=== PATIENT | female | born 1985 | race Caucasian/White ===

== ENCOUNTER 2024-09-03 15:24 | Emergency (ER) | payer MEDICAID, SELFPAY ==
[2024-09-03 15:36] VITALS: BP 142/97; PULSE 100; RESP 20; TEMP 36.7; O2SAT 97; BMI 25.7
--- NOTE | 2024-09-03 15:59 | ED_ITS ---
HPI - Medical Clearance General Chief complaint: Medical Clearance Stated complaint: Med refill Time Seen by Provider: 09/03/24 15:59 Source: patient Mode of arrival: ambulatory Limitations: no limitations History of Present Illness ED Provider: Lora Sanchez PA-C HPI Narrative: Patient is a 39 year old assigned female at with a history of psychiatric diagnoses presenting to the emergency department today requesting a medication refill. Patient states that when she was transferred from [facility] stabilization to [facility] she was transferred with her medications but they did not include her Seroquel. Patient states that she got ahold of her prescriber who stated she would transfer the prescription to the [facility] but would need 3 business days to do so. Patient states that she needs her medication sooner than 3 days from now. Patient denies any dizziness, lightheadedness, abdominal pain, nausea, vomiting, fever, chills, blurry vision, double vision, loss of vision, chest pain, difficulty breathing, shortness of breath, back pain, night sweats, pain with urination, increased urinary frequency, increased urinary urgency, blood in her urine or stool, syncope or a near syncopal episode, recent trauma or falls, bowel incontinence, bladder incontinence, or any other complaints at this time. Related Information Previous Rx's ?Medication ?Instructions ?Recorded quetiapine 200 mg tablet (Seroquel) See Rx Instructions .Route 09/03/24 .COMPLEX 3 days #12 tabs Allergies Allergy/AdvReac Type Severity Reaction Status Date / Time No Known Allergies Allergy Verified 09/03/24 15:40 Review of Systems Constitutional: Constitutional: Reports no additional constitutional complaints, Denies chills, Denies fever(s) and Denies night sweats Eyes: Eyes: Reports no additional eye complaints, Denies blurry vision, Denies change in vision, Denies diplopia, Denies eye discharge, Denies loss of vision and Denies eye pain ENT: Denies dizziness Cardiovascular: Cardiovascular: Reports no additional cardiovascular complaints, Denies chest pain, Denies lightheadedness, Denies Loss of Consciousness and Denies dyspnea Respiratory: Respiratory: Reports no additional respiratory complaints and Denies dyspnea Gastrointestinal: Gastrointestinal: Reports no additional gastrointestinal complaints, Denies abdominal pain, Denies melena, Denies hematochezia, Denies change in bowel habits and Denies change in stool character Genitourinary: Genitourinary: Denies hematuria, Denies urinary frequency, Denies dysuria, Denies urinary incontinence, Denies urinary hesitancy and Denies urinary urgency Musculoskeletal: Musculoskeletal: Reports no additional musculoskeletal complaints, Denies numbness and Denies tingling Neurologic: Denies dizziness, Denies loss of vision, Denies numbness and Denies tingling Psychiatric: Psychiatric: Reports no additional psychiatric complaints Endocrine: Endocrine: Reports no additional endocrine complaints Hematologic/Lymphatic: Hematologic/Lymphatic: Reports no additional hematologic/lymphatic complaints Allergic/Immunologic: Allergic/Immunologic: Reports no additional allergic/immunologic complaints [facility] Past Medical History Attestation statement: The following information was validated with the patient. Source: old records reviewed and nursing notes reviewed Social History Social History Advance Directives: No Advance Directives Information Provided: Yes Physical Exam Vital Signs: Vital Signs: Last Vital Signs Temp 98.2 F 09/03/24 17:02 Pulse 96 09/03/24 17:02 Resp 16 09/03/24 17:02 BP 130/82 09/03/24 17:02 Pulse Ox 97 09/03/24 17:02 O2 Del Method Room Air 09/03/24 17:02 BMI result Body Mass Index 25.7 Const: General: cooperative, no acute distress, alert and awake Nutritional Appearance: well nourished Orientation/consciousness: patient oriented x3 HEENT: Head: Yes normal to inspection and Yes atraumatic Ears: hearing grossly normal bilaterally and external ears normal General nose exam: Normal external nose present, no nasal discharge noted and no epistaxis Face and sinus: Yes normal facial exam, No abrasion and No laceration Mouth: Normal oral and palatal mucosa present, no drooling and no muffled voice Eyes: General: appearance normal, both eyes and all related structures Periorbital: periorbital findings normal Eyelids: Yes eyelids normal Conjunctivae: conjunctivae normal Pupils: Equal, round and reactive pupils present EOM: EOMs intact bilaterally Neck: Neck: Yes normal visual inspection, Yes full ROM and Yes no lympha denopathy Resp: Effort & Inspection: normal respiratory effort and able to speak in complete sentences Neuro: General: patient oriented x3, moves all extremities and CN's II-XI intact bilaterally Cranial nerves: Yes Equal, round and reactive pupils present Cognition (Neuro): normal cognition Extrem: General: Yes normal to inspection, Yes full ROM and Yes capillary refill normal Psych: Appearance: grossly normal Mental Status: mental status grossly normal Affect: normal affect Attitude: cooperative Thought process: Normal thought process present Thought content: Normal thought content pres ent Insight: Good insight present (Psych) Medications Administered Discontinued Medications Generic Name Dose Route Start Last Admin Trade Name [place] PRN Reason Stop Dose Admin Quetiapine Fumarate 200 mg 09/03/24 16:08 09/03/24 16:59 Quetiapine Fumarate 200 Mg Tablet PO 09/03/24 16:09 200 mg ONCE ONE Administration Medical Decision Making Medical Decision Making MDM Narrative: Patient is a 39 year old assigned female at with a history of psychiatric diagnoses presenting to the emergency department today requesting a medication refill. Patient's physical exam was unremarkable. I explained my physical exam findings to the patient. I answered all questions asked by the patient. Patient was given a dose of her seroquel while in the department. I explained to the patient that I would prescribe her 3 days worth of her medications however, my prescription may delay her getting the new prescription filled that is being sent in by her normal prescriber. I explained this may be an issue because of refill times . Patient stated that she understood and wanted the smaller script sent by me put in. I stressed the importance of the patient taking her medication as directed (either prescribed or as the over the counter packaging recommends). I stressed the importance of the patient following up with her primary care provider and her psychiatrist. I stressed the importance of the patient returning to the emergency department immediately if her symptoms were to worsen or if she were to develop any dizziness, shortness of breath, difficulty breathing, chest pain, blurry vision, loss of vision, nausea, vomiting, abdominal pain, fever, chills, back pain, or any other complaints. Patient verbalized agreement and understanding with this treatment plan and discharge. Differential Diagnosis Differential Diagnoses: The differential diagnosis associated with the presentation includes Medication refill Admission/Observation Consideration of admission/observation: Escalation of care including admission/observation considered Patient would have been admitted to the hospital had her clinical presentation warranted hospital admission. Discharge Plan Discharge Clinical Impression: Encounter for medication refill Patient Disposition: Home, Self-Care Instructions: Medicine Refill (ED) Additional Instructions: You have been given a prescription for your Seroquel for 3 days. Filling this prescription may cause issues / delays with filling your next / longer Seroquel prescription. I explained that to you and you have decided you would like to have the short refill now and will address the delay / issue with a longer refill if it occurs. Follow up with your primary care provider and your psychiatrist. Return to the emergency department immediately if you develop any numbness, tingling, dizziness, shortness of breath, difficulty breathing, chest pain, blurry vision, loss of vision, nausea, vomiting, abdominal pain, fever, chills, back pain, or any other complaints. Please see the information below about our Patient Portal. If you are not yet enrolled in the [facility] Patient Portal, you will receive an enrollment email invitation following your visit to any [facility] setting. You may also self-enroll in the Patient Portal by visiting our website: [email or web address] The following information is required to access the Patient Portal: - Your [facility] Medical Record Number - Your personal home email address (must match what is in your electronic medical record, Registration staff can assist with this) - Name - Date of Capabilities of the Patient Portal: - Message some providers - View upcoming appointments - Access your health summary, medical history, and visit history - View current conditions and allergies - View procedure and lab results - View your medications, including guidelines, side effects, and precautions - Complete pre-appointment questionnaires requested by your provider - Ready summary reports of your office visits and procedures To access the Patient Portal Mobile Honey, follow these directions: - Search [employer] in the Honey Store or [employer] Store - Download the Honey - Search for [facility] - Enter your login/password Prescriptions: New quetiapine [Seroquel] 200 mg tablet See Rx Instructions .ROUTE .COMPLEX 3 Days Qty: 12 0RF Rx Instructions: 200 mg (1 tablet) orally in the morning and afternoon 400 mg (2 tablets) at bed time Referrals: [facility] Family Medicine [Provider Group] (Call to establish and follow up with a primary care provider. If you already have a primary care provider, please follow up with them.) [facility] Primary Care, Ronnie [Provider Group] (Call to establish and follow up with a primary care provider. If you already have a primary care provider, please follow up with them.) [facility] Primary Care, Patt [Provider Group] (Call to establish and follow up with a primary care provider. If you already have a primary care provider, please follow up with them.) [facility] Primary Care, 10 [Provider Group] (Call to establish and follow up with a primary care provider. If you already have a primary care provider, please follow up with them.) [facility] Primary CareJuan M [Provider Group] (Call to establish and follow up with a primary care provider. If you already have a primary care provider, please follow up with them.) Interventions: ED Discharge Assessment Last Done: 09/03/24 17:02 Discharge Date/Time: 09/03/24 17:02 Print Language: Nauruan
[2024-09-03 16:25] VITALS: BP 130/82; PULSE 96; RESP 16; TEMP 36.8; O2SAT 97
[2024-09-03] MEDS: QUEtiapine Fumarate 200 MG TABLET PO (16:59)
[2024-09-03 17:02] VITALS: BP 130/82; PULSE 96; RESP 16; TEMP 36.8; O2SAT 97
== END 2024-09-03 17:02 | disposition home or self-care (01) ==
PROVIDERS: Emergency Provider Emergency Medicine
DX: Z76.0 Encounter for issue of repeat prescription (principal)
CPT/HCPCS: 99283

== ENCOUNTER 2024-10-13 10:02 | Emergency (ER) | payer MEDICAID, SELFPAY ==
[2024-10-13 10:20] VITALS: BP 106/74; PULSE 87; RESP 16; TEMP 36.1; O2SAT 99; BMI 32.8
--- NOTE | 2024-10-13 10:34 | ED.GENADULT ---
HPI - General Adult General Chief complaint: General Medical Stated complaint: medication Time Seen by Provider: 10/13/24 10:29 Source: patient Mode of arrival: ambulatory Limitations: no limitations History of Present Illness ED Provider: JAMIL MOELLER PA-C HPI narrative: 39 year old female with pmhx significant fora anxiety, depression, seizures presents to the ED today requesting a refill of her medication. She has been out of her keppra since 10/01/24. She recently moved to the area. Her new psychiatrist has been prescribing her psych meds however she has not been able to establish care with a PCP to refill her keppra. Her appointment with her PCP is next May. Denies any symptoms or complaints. Denies any recent seizure activity. Related Data Previous Rx's ?Medication ?Instructions ?Recorded quetiapine 200 mg tablet (Seroquel) See Rx Instructions .Route 09/03/24 .COMPLEX 3 days #12 tabs levetiracetam 500 mg tablet 500 mg PO BID 30 days #60 tabs 10/13/24 (Keppra) Allergies Allergy/AdvReac Type Severity Reaction Status Date / Time No Known Allergies Allergy Verified 10/13/24 10:21 Review of Systems Review of Systems: Constitutional: No fever, chills, fatigue, night sweats, weight changes ENT/Mouth: No ear pain, hearing loss, nasal congestion, sinus pain, rhinorrhea, sore throat Eyes: No eye pain, swelling, redness, vision changes, discharge Cardio: No chest pain, palpitations, GRADY, orthopnea, peripheral edema Pulm: No SOB, cough, sputum, wheezing, dyspnea, hemoptysis GI: No nausea, vomiting, hematemesis, abdominal pain, diarrhea, constipation, hematochezia, melena : No irregular bleeding, dysuria, frequency, urgency, hesitancy, hematuria, flank pain, urinary flow changes, urinary incontinence or retention MSK: No back pain, neck pain, joint pain, myalgias Skin: No lesions, rashes Neuro: No weakness, numbness, paresthesias, LOC, dizziness, headache Psych: No anxiety/panic, depression, SI/HI, AH/VH All other systems reviewed and are negative. [facility] Past Medical History Attestation statement: The following information was validated with the patient. Source: old records reviewed and nursing notes reviewed Social History Social History Advance Directives: No Advance Directives Information Provided: No Do you have a plan to hurt others: No Plan Physical Exam ED Vital Signs: Vital Signs - 24 hr 10/13/24 10:20 Temperature 96.9 F Pulse Rate 87 Respiratory Rate 16 Blood Pressure 106/74 Pulse Oximetry 99 Oxygen Delivery Method Room Air BMI result Body Mass Index 32.8 vital signs stable General: Well appearing, in no acute distress. Skin: Warm, dry, intact. No rashes or lesions. Head: Normocephalic, atraumatic. EENT: Hearing is intact b/l. Conjunctiva clear. Sclera is anicteric. PERRLA. EOM intact. Moist mucous membranes.? Cardiac: Chest wall symmetric. RRR Lungs: Normal respiratory effort without accessory muscle use. CTA bilaterally Back: No midline spinous or paraspinal tenderness. No step off deformity. Ext: Upper and lower extremities atraumatic, without tenderness, deformity, swelling or erythema Neuro: AOx3. Normal speech. Ambulating with steady gait. Medical Decision Making Medical Decision Making MDM Narrative: 39 year old female with pmhx significant fora anxiety, depression, seizures presents to the ED today requesting a refill of her medication. Vitals are stable. Exam benign. Spoke with my attending, Dr. Brown. Will send prescription for Keppra to pharmacy. Will provide 2 refills. Provided with referrals to PCP. Advised to follow up for further scripts. Differential Diagnosis Differential Diagnoses: The differential diagnosis associated with the presentation includes as above. Admission/Observation not indicated. Prescription Management I considered prescription management with: Other (keppra) Chronic Conditions Patient?s care impacted by: Other (seizures) Social Determinants Patient?s care significantly limited by Social Determinants of Health including: Other Social Determinant of Health Critical Care Time Critical Care Time Critical Care Time: No Discharge Plan Discharge Clinical Impression: Medication refill Patient Disposition: Home, Self-Care Instructions: Levetiracetam (By mouth), Medicine Refill (ED) Additional Instructions: You presented to the ED today for medication refill. Keppra has been refilled and sent to your pharmacy. Take this twice daily as prescribed to prevent seizures. Keep your appointment with your PCP. I have provided you with referrals to other PCPs. You may call them to establish care, they will not call you. Return with any new or worsening symptoms. In the case of an emergency call 911. Prescriptions: New levetiracetam [Keppra] 500 mg tablet 500 mg PO BID 30 Days Qty: 60 2RF No Action quetiapine [Seroquel] 200 mg tablet See Rx Instructions .ROUTE .COMPLEX 3 Days Qty: 12 0RF Rx Instructions: 200 mg (1 tablet) orally in the morning and afternoon 400 mg (2 tablets) at bed time Referrals: [facility] Family Medicine [Provider Group, Family Practice] [facility] Primary Care, Patt [Provider Group, Internal Medicine] Physician,None [Primary Care Provider, Medical] Discharge Date/Time: 10/13/24 10:44 Print Language: Sinhala
== END 2024-10-13 10:44 | disposition home or self-care (01) ==
LOC: HO.ED 10:40
PROVIDERS: Emergency Provider Emergency Medicine
DX: R56.9 Unspecified convulsions (principal); Z76.0 Encounter for issue of repeat prescription
CPT/HCPCS: 99281; 99282

== ENCOUNTER 2024-11-02 19:50 | Emergency (ER) | payer MEDICAID, SELFPAY ==
--- OUTSIDE RECORDS SUMMARY | 2024-01-01 03:30 | XMS_ITS | Continuity of Care Document ---
Author Organization [facility] Address [address] [place] [address] Phone Care Team Providers Care Mobile Equipment Operator Name Role Phone Precious FRANSusannah Unavailable Unavaila ble Allergies, Adverse Reactions, Alerts Substance Reaction Status Criticality No Known Allergies Active No Inform ation Medications Medication Instructions Dosage Effective Dates (start - stop) Status Comments buprenorphine 8 mg-naloxone [address] 1 tablet by sublingual route every day allow to dissolve slowly in mouth without chewing or swallowing 1.00 tablet - No Longer Active fluoxetine 20 mg capsule take 1 capsule by oral route every day in the morning 20 MG - No Longer Active Keppra 500 mg tablet take 1 tablet by oral route 2 times every day 500 MG - No Longer Active Seroquel 300 mg tablet take 1 tablet by oral route every day 300 MG - No Longer Active Procedures Procedure Date Non-billable Service E&M ESTAB PATIENT 15 MIN Non-billable Service Non-billable Service E&M ESTAB PATIENT 5 MIN Non-billable Service E&M ESTAB PATIENT 15 MIN Non-billable Service E&M ESTAB PATIENT 25 MIN Non-billable Service Non-billable Service Non-billable Service E&M ESTAB PATIENT 5 MIN PSYCHIATRIC DIAGNOSTIC EVALUATION Non-billable Service Non-billable Service Non-billable Service Advance Directives Directive Yes / No Effective Date File Name No Information Encounters Encounter Description Practice Location Reason(s) For Visit Diagnoses Date Provider Providers Copied on Encounter [facility], [address], [place], [place], [id number], [place] tel:[phone] [place] Crisis No Information Dec-0 4 Precious P Kayena. [address], [place], [place], [id number], [place]. tel:[phone] [facility], [address], [place], [place], [id number], [place] tel:[phone] [place] Crisis Opioid dependence, uncomplicated Oct-0 4 Umesh Prakash. [address] [place] [address], [id number], [place]. tel:[phone] [facility], [address], [place], [place], [id number], [place] tel:[phone] [place] Crisis Opioid dependence, uncomplicated Oct-0 4 Shana PMHNP Fri. [address] [facility], [place], [place], [id number], [place]. tel:[phone] [employer], [address], [place], [place], [id number], [place] tel:[phone] [place] Crisis Opioid dependence, uncomplicated Sep-3 0- 4 Nidhi ADAMS [facility]. [address] [facility], [place], [place], [id number], [place]. tel:[phone] [employer], [address], [place], [place], [id number], [place] tel:[phone] [place] Crisis Opioid dependence, uncomplicated Sep-3 0202 4 Precious P Kayena. [address] [facility], [place], [place], [id number], [place]. tel:[phone] [employer], [address], [place], [place], [address], [place] tel:[phone] [place] Crisis Opioid dependence, uncomplicated Sep-3 0- 4 Umesh Prakash. [address], [place], [place], [id number], [place]. tel:[phone] [facility], [address], [place], [place], [id number], [place] tel:[phone] [place] Crisis Opioid dependence, uncomplicated Sep-3 0- 4 Page JALEESA [facility] Yara. [address], [place], [place], [id number], [place]. 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 [address], [place], [place], [id number], [place]. tel:[phone] [employer], [address], [place], [place], [id number], [place] tel:[phone] [place] Crisis Opioid dependence, uncomplicated Sep-3 0 4 Dior Rodrigez. [address], [place], [place], [id number], [place]. tel:[phone] [employer], [address], [place], [place], [id number], [place] tel:[phone] [place] Crisis Opioid dependence, uncomplicated Aug-3 4 Alaka PMHNP [employer]. [address], [place], [place], [id number], [place]. tel:[phone] [facility], [address], [place], [place], [id number], [place] tel:[phone] [place] Crisis Opioid dependence, uncomplicated Aug-3 4 No Information [employer], [address], [place], [place], [id number], [place] tel:[phone] [place] Crisis Opioid dependence, uncomplicated Aug-3 4 Garland Vizcarra. [address], [place], [place], [address], [place]. tel:[phone] [facility], [address], [place], [place], [id number], [place] tel:[phone] [place] Crisis Opioid dependence, uncomplicated 4 Delfina Charles. [address], [place], [place], [id number], [place]. tel:[phone] PSYCHIATRIC DIAGNOSTIC EVALUATION [employer] [facility], [address], [place], [place], [id number], [place] tel:[phone] [place] Crisis Opioid dependence, uncomplicated 4 Robert Jimenez. [address], [place], [place], [address], [place]. tel:[phone] [employer], [address], [place], [place], [address], [place] tel:[phone] [place] Crisis Opioid dependence, uncomplicated 4 Markell Tarango. [address], [place], [place], [id number], [place]. tel:[phone] Family History Family Member Type Diagnosis Age At Onset No Information Payers Payer name Insurance type Covered green party ID vicky hernandez(s) [place] Non-Medicaid [facility] Social History Type Description Quantity Date Captured Comments Sex Female Smoking Status No Information Vital Signs Date / Time: Height Weight BMI Pulse Rate Blood Pressure Temperature Respiratory Rate Body Surface Area Head Circumference Head Circ. Percentile Wt./Morgan. Percentile BMI percentile Pulse Ox Inhaled Ox 5:33 AM 82 /min 97.60 F 98 % 10:14 AM 50 /min 97.30 F 17 /min 96 % 11:13 AM 78 /min 97.80 F 16 /min 98 % 9:52 PM 66 /min 97.50 F 17 /min 97 % 5:24 AM 76 /min 98.50 F 17 /min 95 % 9:25 AM 67 /min 97.10 F 20 /min 98 % Chief Complaint And Reason For Visit No Information Reason For Referral Reason For Referral No Information History Of Present Illness Encounter Date Complaint History Of Prese nt Illness No Information Functional Status Date Functional Assessmen t No Information Instructions Date Instruction Additional Infor mation No Information Assessments Type Assessment Date No Information Patient Care Teams Name Effective Dates (start - stop) Status Members No Information
[2024-11-02 20:00] VITALS: BP 149/78; PULSE 107; O2SAT 98
[2024-11-02 20:12] VITALS: BP 144/79; PULSE 95; RESP 16; TEMP 36.8; O2SAT 92; BMI 25.0
--- NOTE | 2024-11-02 20:26 | ECG_ITS ---
Test Reason : OVERDOSE Blood Pressure : */* mmHG Vent. Rate : 85 BPM Atrial Rate : 85 BPM P-R Int : 130 ms QRS Dur : 76 ms QT Int : 418 ms P-R-T Axes : 63 55 10 degrees QTcB Int : 497 ms Normal sinus rhythm Prolonged QT Abnormal ECG No previous ECGs available Referred By: Generic ED Physician Electronically Signed By: ARIANNE NGO
--- NOTE | 2024-11-02 20:53 | PC.NURSE ---
Pt was changed over. RN put patient belongings ( 3 bags- labeled) into the sallyport. Pts home medications stored in management office, locked. charge aware.
--- NOTE | 2024-11-02 20:57 | ED_ITS ---
HPI - Overdose General Chief Complaint: Overdose Stated Complaint: found unresponsive, narcan given Time Seen by Provider: 11/02/24 20:47 Source: patient and EMS Mode of arrival: EMS Limitations: no limitations History of Present Illness ED Provider: DR. Sequeira HPI Narrative: A 39-year-old female history of mental illness, polysubstance abuse, found unresponsive by bystander and was given 4 mg of Narcan patient became more responsive after Narcan, was transported to the emergency department, patient is responsive in the ED but very sleepy claimed that she has not slept for 2 days, has no place to go to, admitted to using 2 bags of heroin, patient is lethargic but easily arousable, declined SI/HI, declined intentional overdose. Patient is not the best historian at this point. Related Data Previous Rx's ?Medication ?Instructions ?Recorded quetiapine 200 mg tablet (Seroquel) See Rx Instruction s .Route 09/03/24 .COMPLEX 3 days #12 tabs levetiracetam 500 mg tablet 500 mg PO BID 30 days #60 tabs 10/13/24 (Keppra) Allergies Allergy/AdvReac Type Severity Reaction Status Date / Time No Known Allergies Allergy Verified 11/02/24 20:14 Review of Systems 2 Review of Systems: Yes Unobtainable due to mental status PMFSH Social History Social History Smoked in Last 30 Days: No Substance Use Type: Crack/Cocaine, Heroin and Opiates Advance Directives: No Advance Directives Information Provided: No Patient : No Physical Exam 2 Vital Signs: Vital Signs: Last Vital Signs Temp 98.0 F 11/03/24 06:00 Pulse 82 11/03/24 06:00 Resp 16 11/03/24 06:00 BP 132/71 11/03/24 06:00 Pulse Ox 98 11/03/24 06:00 O2 Del Method Room Air 11/03/24 06:00 BMI result Body Mass Index 25.0 Vital signs have been reviewed and appear to be correct. Blood pressure elevated. Heart rate normal. Respiratory rate normal. Temperature normal. Oxygen saturation normal. Appearance: Lethargic, responds to her name and verbal stimuli think go back to sleep, attributed that to no sleep for the last 2 days and feels tired.. No acute distress. Head: Normal external exam. Normocephalic. Atraumatic. No Oseguera signs noted. No raccoon eyes noted Eyes: PERRLA. EOMI. Conjunctiva and sclera normal. Eyelids normal. ENT: TM's Normal. Pharynx normal. Uvula midline. Moist mucous membranes. No trismus noted. No drooling noted. No muffled voice noted. Neck: Normal inspection. Neck supple. FROM. No adenopathy. Thyroid Normal. No meningeal signs. No neck mass noted. CVS: Normal heart rate and rhythm. Heart sound normal. No murmurs noted. Pulses normal throughout. Respiratory: No respiratory distress. Painless inspiration. Breath sounds normal. No wheezes/rales/rhonchi noted. Chest nontender. No accessory muscle usage noted or decreased air movement noted. Abdomen: Soft and nontender. Bowel sounds normal in all 4 quadrants. No distention noted. No organomegaly noted. No visible injury noted. Back: No CVA tenderness. Full range of motion noted. Skin: Skin warm and dry. Normal skin color. Normal skin turgor. No rashes/lesions/lacerations noted. Extremities: No lower extremity edema. Extremities exhibit normal range of motion. Extremities nontender. Neuro: Cranial nerve exam: II-XII are grossly intact No motor deficit. No sensory deficit. Reflexes normal. No SI, no HI, no hallucination. Course Reevaluation(s) Reevaluation #1: Brought in by EMS after using 2 bags of heroin, responded to Narcan by bystander, patient at this point able to keep vital signs stable, will watch her until patient is more awake and become more historian. Will start physician observation. Time: 21:04 Reevaluation #2: DR. Sequeira's progress note 11/03/2024, 2;00 Patient declined talking to care team/recovery team stated that she is tired in rather to sleep, however patient still declined SI/HI/hallucination. Will continue with physician observation case signed out to . Time: 02:00 Medical Decision Making Medical Decision Making MDM Narrative: In a.m. patient not suicidal not homicidal. Woke up with 4 mg of Narcan yesterday. We gave her a additional Narcan to take home. Patient in no distress. Does not want detox at this time. Ambulates without any difficulty. Patient is being discharged home. Differential Diagnosis Differential Diagnoses: The differential diagnosis associated with the presentation includes Narcotic overdose Admission/Observation Consideration of admission/observation: Escalation of care including admission/observation considered Lab Data 11/03/24 07:30 11/03/24 07:30 Labs: Lab Results 11/03/24 Range/Units 07:30 WBC 8.6 (4.8-10.8) X10*3/uL RBC 4.30 (4.20-5.50) X10*6/uL Hgb 12.4 (12.0-16.0) g/dl Hct 36.5 L (37.0-47.0) % MCV 84.9 (80.0-98.0) fL MCH 28.8 (27.0-33.0) pg MCHC 34.0 (31.0-35.0) g/dl RDW 14.6 (11.0-16.0) % Plt Count 216 (160-400) X10*3/uL MPV 9.2 L (9.4-12.3) fL Immature Gran % (Auto) 0.2 (0.0-0.4) % Neut % (Auto) 57.1 (45-73) % Lymph % (Auto) 26.7 (20-40) % [place] % (Auto) 10.2 (2-11) % Eos % (Auto) 5.3 H (0-4) % Baso % (Auto) 0.5 (0-2) % Lymph # (Auto) 2.3 (1.2-4.9) X10*3/uL [place] # (Auto) 0.9 (0.1-1.2) X10*3/uL Eos # (Auto) 0.5 H (0.0-0.4) X10*3/uL Baso # (Auto) 0.0 (0.0-0.2) X10*3/uL Abs Immat Gran (auto) 0.02 (0.00-0.03) X10*3/uL Absolute Neuts (auto) 4.9 (2.0-8.3) x10*3/uL Absolute Nucleated RBC 0.000 (0.0-0.012) X10*3/uL Nucleated RBC % (auto) 0.0 (0.0-0.2) /100WBC Sodium 143 (135-145) mmol/L Potassium 3.5 (3.3-5.1) mmol/L Chloride 109 H (96-108) mmol/L Carbon Dioxide 26 (22-29) mmol/L Anion Gap 12 (12-20) BUN 16 (9-16) mg/dL Creatinine 0.84 (0.5-1.4) mg/dL Estim Creat Clear Calc 80.1 Estimated GFR > 60 Random Glucose 125 H (60-115) mg/dL Calcium 7.9 L (8.4-10.2) mg/dL Total Bilirubin 0.4 (0.0-1.0) mg/dL AST 21 (5-31) U/L ALT 14 (0-31) U/L Alkaline Phosphatase 35 L (39-117) U/L Total Protein 6.5 (6.5-8.0) g/dL Albumin 3.8 (3.5-5.0) g/dL Social Determinants Patient?s care significantly limited by Social Determinants of Health including: Inadequate housing, Low income, Alcoholism and drug addiction in family, Problems related to primary support group and Unemployment Discharge Plan Discharge Clinical Impression: Drug overdose Patient Disposition: Home, Self-Care Prescriptions: No Action quetiapine [Seroquel] 200 mg tablet See Rx Instructions .ROUTE .COMPLEX 3 Days Qty: 12 0RF Rx Instructions: 200 mg (1 tablet) orally in the morning and afternoon 400 mg (2 tablets) at bed time levetiracetam [Keppra] 500 mg tablet 500 mg PO BID 30 Days Qty: 60 2RF Referrals: Physician,Unknown J [Primary Care Provider, Medical] Referral Note: Please go to detox. Please follow-up as per care team. Print Language: Czech
--- NOTE | 2024-11-02 22:57 | PC.NURSE ---
Pt refused blood work. made aware.
[2024-11-03 02:19] VITALS: BP 126/77; PULSE 68; RESP 12; TEMP 36.4; O2SAT 98
[2024-11-03 04:56] VITALS: BP 130/71; PULSE 73; RESP 12; TEMP 36.4; O2SAT 95
[2024-11-03 06:00] VITALS: BP 132/71; PULSE 82; RESP 16; TEMP 36.7; O2SAT 98
[2024-11-03 07:35] LABS: MANUAL DIFF FLAG NO
[2024-11-03 07:38] LABS: Hematocrit 36.5 % (37.0-47.0); Hemoglobin 12.4 g/dl (12.0-16.0); Imm Gran Abs Auto 0.02 X10*3/uL (0.00-0.03); Imm Gran Pct Auto 0.2 % (0.0-0.4); Lymphocytes Absolute Auto 2.3 X10*3/uL (1.2-4.9); Mean Corpuscular HGB Conc 34.0 g/dl (31.0-35.0); Mean Corpuscular Hemoglobin 28.8 pg (27.0-33.0); Mean Corpuscular Volume 84.9 fL (80.0-98.0); NRBC Abs Auto 0.000 X10*3/uL (0.0-0.012); NRBC Pct Auto 0.0 /100WBC (0.0-0.2); Platelet Count 216 X10*3/uL (160-400); Red Blood Count 4.30 X10*6/uL (4.20-5.50); White Blood Count 8.6 X10*3/uL (4.8-10.8)
--- NOTE | 2024-11-03 07:45 | PC.NURSE ---
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 pt agreeable to lab work/urine. labs/urine specimen obtained/sent to lab. pt currently speaking w/ care team at this time. plan of care ongoing.
[2024-11-03 07:51] LABS: Alanine Aminotransferase 14 U/L (0-31); Albumin Level 3.8 g/dL (3.5-5.0); Alkaline Phosphatase 35 U/L (39-117); Anion Gap 12 (12-20); Aspartate Amino Transferase 21 U/L (5-31); Blood Urea Nitrogen 16 mg/dL (9-16); Calcium 7.9 mg/dL (8.4-10.2); Carbon Dioxide 26 mmol/L (22-29); Chloride 109 mmol/L (96-108); Creatinine Clr Calc Pharmacy 80.1; Estimated Glomerular Filt Rate > 60; Potassium 3.5 mmol/L (3.3-5.1); Sodium 143 mmol/L (135-145); Total Protein 6.5 g/dL (6.5-8.0)
[2024-11-03 07:55] LABS: Appearance Urine Cloudy; Glucose Urine UA Negative (Negative); PH 5.5 (5.0-9.0); Specific Gravity - Urine 1.015 (1.005-1.025); UMIC TRIGGER UACC YES
[2024-11-03 07:58] LABS: Troponin-I High Sensitivity < 2.7 ng/L (<3.5-17.0)
--- NOTE | 2024-11-03 07:58 | MHC.CARE ---
T/W met with Pt this morning to inquire if Pt was interested in detox as she was not engaging last evening. Pt declined an admission to detox and all other substance use resources. Pt will discharge.
[2024-11-03 08:09] LABS: Cannabinoid Screen Urine Not Detected (Not Detect)
[2024-11-03] MEDS: Naloxone HCl Nasal TAKE HOME 4 MG SPRAY 8 MG NOSTRILALT (08:23)
[2024-11-03 08:27] VITALS: BP 111/91; PULSE 84; RESP 12; TEMP -17.7; TEMP 0; O2SAT 93
[2024-11-03 08:28] VITALS: BP 111/91; PULSE 84; RESP 12; TEMP -17.7; TEMP 0; O2SAT 93
--- NOTE | 2024-11-03 08:36 | PC.NURSE ---
medications retrieved from pharmacy. personal belongings obtained from [facility] prior to d/c.
--- NOTE | 2024-11-03 08:43 | PC.NURSE ---
only 2 sprays of narcan provided to patient prior to d/c.
== END 2024-11-03 08:43 | disposition home or self-care (01) ==
PROVIDERS: Emergency Medicine; Emergency Provider Emergency Medicine
DX: T65.91XA Toxic effect of unspecified substance, accidental (unintentional), initial encounter (principal); Y92.9 Unspecified place or not applicable; F19.10 Other psychoactive substance abuse, uncomplicated
CPT/HCPCS: 36415; 80053; 80307; 81001; 84484; 85025; 93005; 99285; S9485

== ENCOUNTER → 2024-11-02 20:26 | Outpatient (BNV) | payer MEDICAID, SELFPAY | PROVIDERS: Emergency Provider Emergency Medicine; Visit Provider Internal Medicine | DX: R94.31 Abnormal electrocardiogram [ECG] [EKG] (principal); T50.901A Poisoning by unspecified drugs, medicaments and biological substances, accidental (unintentional), initial encounter | CPT/HCPCS: 93010 ==